=== PATIENT | female | born 1995 | race Caucasian/White ===

== ENCOUNTER 2023-10-09 18:29 | Emergency (ER) | payer BC, SELFPAY ==
[2023-10-09 18:29] VITALS: BMI 29.3
[2023-10-09 18:32] VITALS: BP 115/76
[2023-10-09 20:24] LABS: HCG, Urine Qualitative Screen Negative
--- NOTE | 2023-10-09 20:43 | ED.MUSCINJ ---
HPI-Injury
General
Chief Complaint: Fall
Time Seen by Provider: 10/09/23 19:21
Travel History
Have you had any contact with someone who has COVID-19?: No
Do you have any symptoms of coronavirus? Fever > 100 degrees, chills, cough, shortness of breath, sore throat, loss of taste or smell, muscle aches, or headache?: No
History of Present Illness-Injury
Initial Injury comments:
Patient is a 27-year-old female with past medical history of long QT syndrome here today for evaluation after she sustained a mechanical fall just prior to arrival. She reports slipping down the steps, landing on her buttocks and back, and sliding
down approximately 6 steps. She does not believe she struck her head and denies loss of consciousness. She does report feeling like she was going to pass out associated with dizziness and darkening of her vision but this was short-lived and self
resolved. She has had no recurrence of symptoms. She denies having a headache or dizziness currently. No numbness or tingling. No focal weakness. No bleeding noted. She is not on anticoagulation. The patient does endorse mild low back pain
predominantly along the midline and right lumbar region. She has been able to ambulate. No numbness or tingling. No incontinence. No prior back surgeries.
Review of Systems
Review of Systems
All Other Systems: ROS reviewed and negative except as documented in HPI and ROS
Phy Exam
Physical Exam
Physical Exam:
GENERAL: Alert , in no apparent distress
EYE: pupils equal and reactive
NECK: Supple, no significant adenopathy.
ENT: o/p clr, mmm.
CARDIAC: Regular rate and rhythm .
LUNGS: Clear breath sounds bilaterally, no acute respiratory distress, no wheezes/rales/rhonchi
ABDOMEN: Soft, without focal tenderness, no r/g, no cvat
NEUROLOGICAL: Alert and oriented, no focal neuro deficits
SKIN: Warm and dry, skin intact.
MUSCULOSKELETAL: No edema, well perfused. There is mild tenderness to palpation along the lower lumbar midline and right lower lumbar paraspinal region, there is a small abrasion along the right lumbar region without active bleeding, no ecchymosis,
no deformities or step-offs appreciated, there is intact strength and sensation in the bilateral lower extremities
PSYCH: Normal and appropriate interaction.
Injury Course
Orders/Labs/Results
Orders:
Orders
10/09/23 18:35
Lumbar Spine Complete, 4 View [CR Lumbar Spine Comp Min 4 Vw*] Urgent
Comment:
Reason For Exam: pain
10/09/23 19:54
Coccyx/Sacrum, 2 View CR [CR Sacrum/coccyx Min 2 View] Urgent
Comment:
Reason For Exam: fall
Pelvis, 1 or 2 Views CR [CR Pelvis - 1 Or 2 Views ] Urgent
Comment:
Reason For Exam: fall
10/09/23 19:57
Test Result ONCE
10/09/23 20:17
, Urine Qualitative Screen [HCG, Urine Qualitative Screen] Urgent
Date Specimen was Collected: 10/09/23
Time Specimen was Collected: 20:16
10/09/23 22:02
Acetaminophen [Tylenol] 650 mg PO NOW STA
Ibuprofen [Motrin] 600 mg PO NOW STA
10/09/23 22:10
Lidocaine [Lidocaine 4% Patch] 1 patch TOPICAL DAILY STA
10/10/23 08:00
Lidocaine [Lidocaine 4% Patch] 1 patch TOPICAL DAILY
MDM/Problems Addressed
Differential Diagnosis Includes:
Patient is a 27-year-old female with past medical history of long QT syndrome here today for evaluation after she sustained a mechanical fall just prior to arrival. Overall, patient appears well. She is neurologically intact. Given fall with
trauma, will obtain x-rays. The patient does endorse feeling dizzy/presyncopal after the event, however, this was short-lived and has self resolved. Patient has had no recurrence of symptoms and is currently asymptomatic from this perspective. I
suspect this was likely secondary to the pain she was experiencing. Will continue to monitor.
Update 1: XRs negative. Patient reassessed. She is able to ambulate appropriately. She is neurologically intact. Plan will be to discharge at this time and prescribe ibuprofen/Tylenol and topical lidocaine patches. Recommend supportive care and
close f/u. Return precautions given. All questions answered. Stable for discharge.
*Critical Care Note
Total Time (30-74mins, 75-104mins- exclusive of procedures): Not Applicable
ED Attending Note
-
Portions of this chart may have been created with voice recognition software.� Occasional wrong word or��sound alike� substitutions may have occurred due to the inherent limitations of voice recognition software.
Discharge Plan
Departure
Patient Disposition: Home (Routine Discharge)
Date of Disposition: 10/09/23
Time of Disposition: 21:51
Patient with high blood pressure during this ER visit?: No
Condition: Good
Covid-19: Not Applicable
Discharge Problem:
Fall, Low back pain, Abrasion of back
Instructions: Back Pain
Prescriptions:
New
ibuprofen 600 mg tablet
600 mg PO Q6H PRN (Reason: Pain) 3 Days Qty: 12 0RF
acetaminophen 325 mg capsule
650 mg PO Q6H PRN (Reason: Pain) 3 Days Qty: 24 0RF
lidocaine 5 % adhesive patch,medicated
1 patch topical DAILY PRN (Reason: pain) 3 Days Qty: 15 0RF
Referrals:
UNKNOWN - PT DOES,NOT KNOW [Family Provider] -
Activity Restrictions/Additional Instructions:
You were seen today for evaluation after you sustained a fall.
We obtained x-rays which reveals no acute findings.
Rest. Avoid heavy lifting. Take ibuprofen and Tylenol as directed as needed for pain. Use the lidocaine patches as directed.
Follow-up with your doctor within the next 3 to 5 days for close reevaluation.
Return for any new worsening, or concerning symptoms.
Interventions
Interventions:
*Risk Screen - Suicide Last Done: 10/09/23 18:32
*General Assessment Last Done: 10/09/23 18:32
*Neglect/Abuse Screening Last Done: 10/09/23 18:32
ED- Fall Risk Assessment Last Done: 10/09/23 22:30
*ED COVID-19 Vaccine History Last Done: 10/09/23 18:32
*Nursing Disposition Last Done: 10/09/23 22:30
ED-Musculoskeletal Assessment Last Done: 10/09/23 21:05
ED- Neurological Assessment Last Done: 10/09/23 21:05
ED-Skin Assessment Last Done: 10/09/23 21:05
Discharge Date and Time
Discharge Date/Time: 10/09/23 22:31
Print Language: ESTONIAN
[2023-10-09] MEDS: MOTRIN 600 MG PO (22:15)
[2023-10-09] MEDS: TYLENOL 650 MG PO (22:15)
[2023-10-09] MEDS: LIDOCAINE 4% PATCH 1 PATCH TOPICAL (22:16)
[2023-10-09 22:30] VITALS: BP 121/79
== END 2023-10-09 22:31 | disposition home or self-care (01) ==
LOC: EMR 18:29
PROVIDERS: Physician Assistant; EMERGENCY PHYSICIAN Emergency Medicine
DX: M54.50 Low back pain, unspecified (principal); W10.9XXA Fall (on) (from) unspecified stairs and steps, initial encounter; S30.810A Abrasion of lower back and pelvis, initial encounter
CPT/HCPCS: 99284; 72110; 72170; 72220; 81025